=== PATIENT | male | born 1985 | race Caucasian/White ===

== ENCOUNTER → 2024-07-19 | Outpatient (CLI) | payer OTHER | LOC: M RAD 09:34 | PROVIDERS: ATTEND Physician Assistant | DX: R91.1 Solitary pulmonary nodule (principal) ==

== ENCOUNTER → 2025-04-10 | Outpatient (CLI) | payer OTHER | LOC: M EKG 13:22 | PROVIDERS: ATTEND Internal Medicine Cardiovascular Disease | DX: R00.2 Palpitations (principal) ==

== ENCOUNTER → 2025-04-25 | Outpatient (CLI) | payer OTHER | LOC: M PLAIMG 09:09 | PROVIDERS: ATTEND Physician Assistant | DX: M25.512 Pain in left shoulder (principal) ==